=== PATIENT | male | born 1950 | race Caucasian/White ===

== ENCOUNTER → 2021-06-01 | Outpatient (CLI) | payer BC ==
--- NOTE | 2021-06-01 18:21 | KCIC ---
Ultrasound of the abdomen 06/01/2021 CLINICAL HISTORY: Hypertension. Smoking history. TECHNIQUE: A real-time ultrasound examination of the abdominal aorta was performed. Multiple images w ere obtained. FINDINGS: This study is limited to some degree due to the patient's very large body habitus. The abdominal aorta tapers normally. No aneurysm is seen. The origins of both common iliac arteries a re not visualized IMPRESSION: There is no sonographic evidence of an abdominal aortic aneurysm. Electronically signed by: Evans Azul MD (06/01/2021 6:18 PM) [id number]
== END ==
LOC: KCIC US 12:28
PROVIDERS: ATTEND Family Medicine
DX: Z13.6 Encounter for screening for cardiovascular disorders (principal); Z00.00 Encounter for general adult medical examination without abnormal findings; I10 Essential (primary) hypertension; Z87.891 Personal history of nicotine dependence
CPT/HCPCS: 76770